=== PATIENT | male | born 1985 | race Caucasian/White ===

== ENCOUNTER → 2024-12-04 | Outpatient (CLI) | payer OTHER, SELFPAY ==
[2024-12-04 17:23] LABS: Synovial Fld Mononuclear WBC # 5.913 10^3/ul; Synovial Fld Mononuclear WBC % 10.2 %; Synovial Fld Polynuclear WBC # 52.046 10^3/uL; Synovial Fld Polynuclear WBC % 89.8 %
[2024-12-04 18:01] LABS: AUTO B FLUID DILUENT BKGD CT WBC <0.1 RBC <0.01 (W<.1,R<.01); Source- Body Fluid SYNOVIAL
[2024-12-04 18:02] LABS: RBC /Synovial Fluid 0.009 10^6/uL (0); Source / Synovial Fluid RIGHT KNEE
[2024-12-04 18:04] LABS: WBC / Synovial Fluid 57.0100 10^3/uL (0.000-0.002)
[2024-12-04 18:05] LABS: Total Cell Count Synovial Fld 57.3600 10^3/uL (0.000-0.000)
[2024-12-04 18:09] LABS: Appearance /Synovial Fluid Turbid (CLEAR); Body Fluid QC Type(s) BF1Q,BF2Q; Color / Synovial Fluid Yellow (Pale Yellow)
[2024-12-04 21:36] LABS: Monocyte /Synovial Fluid 3 %
[2024-12-04 22:30] LABS: CRYSTALS, BODY FLUID CALCIUM PYROPHOS
== END | disposition home or self-care (01) ==
LOC: LAB 16:29
PROVIDERS: PCP Family Medicine; Referring Provider Orthopaedic Surgery; Visit Provider Orthopaedic Surgery
DX: M25.461 Effusion, right knee (principal); M25.561 Pain in right knee
CPT/HCPCS: 87070; 87075; 87205; 89050; 89051; 89060

== ENCOUNTER → 2024-12-07 | Outpatient (CLI) | payer OTHER, SELFPAY ==
[2024-12-09 14:09] LABS: Lyme Scn Total Ab w/Rflx Positive (Negative)
== END | disposition home or self-care (01) ==
LOC: LAB 16:18
PROVIDERS: PCP Family Medicine; Referring Provider Physician Assistant; Visit Provider Physician Assistant
DX: Z11.8 Encounter for screening for other infectious and parasitic diseases (principal)
CPT/HCPCS: 36415; 86618

== ENCOUNTER → 2024-12-10 | Outpatient (CLI) | payer SELFPAY, OTHER ==
--- NOTE | 2024-12-10 12:41 | VDLE_ITS ---
Reason For Study VL/Venous Duplex US, Unilateral
== END | disposition home or self-care (01) ==
LOC: CVS 12:36
PROVIDERS: PCP Family Medicine; Referring Provider Orthopaedic Surgery; Visit Provider Orthopaedic Surgery
DX: M79.605 Pain in left leg (principal)
CPT/HCPCS: 93971